=== PATIENT | male | born 1945 | race Caucasian/White ===

== ENCOUNTER → 2018-05-21 | Outpatient (CLI) | payer MEDICARE, OTHER | LOC: COL.RAD 08:17 | DX: N28.89 Other specified disorders of kidney and ureter (principal); N20.1 Calculus of ureter; N28.1 Cyst of kidney, acquired; K76.0 Fatty (change of) liver, not elsewhere classified; K57.30 Diverticulosis of large intestine without perforation or abscess without bleeding | CPT/HCPCS: Q9967 ==

== ENCOUNTER 2018-06-11 10:57 | Day surgery (SDC) | payer MEDICARE, OTHER ==
[2018-06-11] VITALS (9 sets, daily range): BP systolic 125–175; BP diastolic 78–101; PULSE 57–87; TEMP 97.5–97.9
[~2018-06-11] VITALS: Ht 170.2 cm; Wt 90.5 kg
[2018-06-11] MEDS ORDERED: LIPITOR 10MG10 MG PO (11:50)
[2018-06-11] MEDS ORDERED: METAMUCIL3.4 GM/DOS PO (11:50)
[2018-06-11] MEDS ORDERED: NEXIUM 20MG20 MG PO (11:51)
[2018-06-11] MEDS ORDERED: PROBIOTIC FORMU1 CAP PO (11:51)
[2018-06-11] MEDS ORDERED: ASPIRIN E.C. 8181 MG PO (11:51)
[2018-06-11] MEDS ORDERED: LISINOPRIL-HCTZ 20-1 PO (11:53)
[2018-06-11] MEDS ORDERED: VITAMIN FLUSH-F1 CAP PO (11:54)
[2018-06-11] MEDS ORDERED: NORCO 325 MG-51 TAB PO (16:05)
[2018-06-11] MEDS ORDERED: SENOKOT S 50 MG1 TAB PO (16:06)
[2018-06-11] MEDS ORDERED: PYRIDIUM 100MG100 MG PO (16:07)
== END 2018-06-11 19:35 | disposition home or self-care (01) ==
LOC: SDCO 10:57
DX: N20.1 Calculus of ureter (principal); I10 Essential (primary) hypertension; E78.5 Hyperlipidemia, unspecified; Z79.82 Long term (current) use of aspirin; F17.210 Nicotine dependence, cigarettes, uncomplicated; Z83.3 Family history of diabetes mellitus; Z80.0 Family history of malignant neoplasm of digestive organs; Z80.8 Family history of malignant neoplasm of other organs or systems; Z82.49 Family history of ischemic heart disease and other diseases of the circulatory system
CPT/HCPCS: C1769; C2617; J1100; J1885; J2270; J2405; J2704; J3010; J7120

== ENCOUNTER 2018-07-02 13:24 | Inpatient (IN) | payer MEDICARE, OTHER ==
[~2018-07-02] VITALS: Ht 170.2 cm; Wt 93.6 kg
[2018-09-21] VITALS (9 sets, daily range): BP systolic 114–146; BP diastolic 75–91; PULSE 83–98; TEMP 97.9
[2018-09-21] MEDS ORDERED: LISINOPRIL-HCTZ 20-1 PO (06:30)
[2018-09-21] MEDS ORDERED: PROTONIX 40MG T40 MG PO (06:33)
[2018-09-21 13:00] LABS: HEMATOCRIT 42.8 % (42.0-52.0); MEAN CELL VOLUME 94 fl (80.0-100.0); MEAN CORPUSCULAR HEMOGLOBIN 31 pg (27.0-31.0); MEAN CORPUSCULAR HGB CONC 33 g/dl (33.0-37.0); PLATELET COUNT 243 K/mm3 (130-400); RED BLOOD COUNT 4.55 M/mm3 (4.20-5.60); REDCELL DISTRIBUTION WIDTH-CV 13.3 % (11.5-14.5)
[2018-09-21 13:09] LABS: CALCIUM 8.4 mg/dL (8.4-10.2); CREATININE, serum 1.28 mg/dL (0.66-1.25); POTASSIUM 4.6 mmol/L (3.4-5.0)
[2018-09-21 13:52] LABS: BAND 7 % (0-10); LYMPHOCYTE 8 % (20.0-51.0); NEUTROPHILS 80 % (42.0-75.2); PLATELET ESTIMATE NORMAL (NORMAL)
[2018-09-22 01:00] VITALS: BP 126/72; PULSE 91; TEMP 97.4
[2018-09-22 04:22] VITALS: BP 135/76; PULSE 87; TEMP 97.1
[2018-09-22 06:34] LABS: BASO % 0.1 % (0.0-2.0); EOS % 0.1 % (0-4.0); GRAN # 11.7 (1.4-6.5); GRAN % 78.4 % (42.2-75.2); HEMATOCRIT 39.5 % (42.0-52.0); HEMOGLOBIN 12.9 g/dl (13.5-18.0); LYMPH # 1.7 (1.2-3.4); LYMPH % 11.2 % (20.0-51.0); MEAN CELL VOLUME 95 fl (80.0-100.0); MEAN CORPUSCULAR HEMOGLOBIN 31 pg (27.0-31.0); MEAN CORPUSCULAR HGB CONC 33 g/dl (33.0-37.0); MEAN PLATELET VOLUME 10.4 fl (7.4-10.4); MONO # 1.4 (0.1-0.6); MONO % 9.6 % (1.7-9.3); PLATELET COUNT 251 K/mm3 (130-400); RED BLOOD COUNT 4.18 M/mm3 (4.20-5.60); REDCELL DISTRIBUTION WIDTH-CV 13.3 % (11.5-14.5)
[2018-09-22 06:48] LABS: CALCIUM 8.3 mg/dL (8.4-10.2); CREATININE, serum 1.12 mg/dL (0.66-1.25); POTASSIUM 4.5 mmol/L (3.4-5.0)
[2018-09-22 07:10] VITALS: BP 132/81; PULSE 78; TEMP 97.7
[2018-09-22 11:05] VITALS: BP 127/74; PULSE 86; TEMP 97.9
[2018-09-22 15:58] VITALS: BP 123/67; PULSE 87; TEMP 97.6
[2018-09-22 21:02] VITALS: BP 114/45; PULSE 99; TEMP 98.3
[2018-09-23 03:34] VITALS: BP 122/82; PULSE 86; TEMP 98.1
[2018-09-23 08:00] VITALS: BP 112/69; PULSE 103; TEMP 98.3
== END 2018-09-23 10:55 | disposition home or self-care (01) | DRG 658 ==
LOC: INPTSU 09-21 05:21 → SURG 09-21 07:30
PROVIDERS: Urology
PROC: 8E0W4CZ Robotic Assisted Procedure of Trunk Region, Percutaneous Endoscopic Approach (ICD-10-PCS; 2018-09-21)
PROC: 0TB14ZZ Excision of Left Kidney, Percutaneous Endoscopic Approach (ICD-10-PCS; principal; 2018-09-21 07:30)
DX: C64.2 Malignant neoplasm of left kidney, except renal pelvis (principal); I10 Essential (primary) hypertension; E78.5 Hyperlipidemia, unspecified; F17.210 Nicotine dependence, cigarettes, uncomplicated
CPT/HCPCS: A4314; A4315; A9284; C1713; J0690; J1100; J1170; J2250; J2405; J2704; J2710; J3010; J7030; J7120

== ENCOUNTER → 2018-07-02 | Outpatient (CLI) | payer MEDICARE, OTHER ==
[~2018-07-02] MED LIST: ASPIRIN E.C. 8181 MG PO; LIPITOR 10MG10 MG PO; LISINOPRIL-HCTZ 20-1 PO; METAMUCIL3.4 GM/DOS PO; NEXIUM 20MG20 MG PO; NORCO 325 MG-51 TAB PO; PROBIOTIC FORMU1 CAP PO; PYRIDIUM 100MG100 MG PO; SENOKOT S 50 MG1 TAB PO; VITAMIN FLUSH-F1 CAP PO
== END ==
LOC: COL.RAD 10:28
DX: N28.1 Cyst of kidney, acquired (principal)

== ENCOUNTER → 2020-08-23 | Outpatient (CLI) | payer MEDICARE, OTHER ==
[~2020-08-23] MED LIST changes: +PROTONIX 40MG T40 MG PO
== END ==
LOC: COL.RAD 07:13
DX: Z85.528 Personal history of other malignant neoplasm of kidney (principal)

== ENCOUNTER → 2022-06-23 | Outpatient (CLI) | payer MEDICARE, OTHER | LOC: COL.RAD 07:20 | DX: Z12.2 Encounter for screening for malignant neoplasm of respiratory organs (principal); F17.210 Nicotine dependence, cigarettes, uncomplicated ==

== ENCOUNTER 2023-03-03 14:34 | Emergency (ER) | payer MEDICARE, OTHER ==
[~2023-03-03] VITALS: Ht 170.2 cm; Wt 84.1 kg
[2023-03-03 14:46] VITALS: TEMP 97.7
[2023-03-03 15:12] LABS: BASO % 0.2 % (0.0-2.0); EOS # 0.2 K/mm3 (0.0-0.7); EOS % 2.4 % (0.0-4.0); GRAN # 5.7 K/mm3 (1.4-6.5); GRAN % 65.7 % (42.2-75.2); HEMATOCRIT 46.4 % (42.0-52.0); HEMOGLOBIN 15.3 g/dl (13.5-18.0); LYMPH # 1.9 K/mm3 (1.2-3.4); LYMPH % 21.7 % (20.0-51.0); MEAN CELL VOLUME 91 fl (80.0-100.0); MEAN CORPUSCULAR HEMOGLOBIN 30 pg (27-31); MEAN CORPUSCULAR HGB CONC 33 g/dl (33.0-37.0); MEAN PLATELET VOLUME 9.8 fl (7.4-10.4); MONO # 0.9 K/mm3 (0.1-0.6); MONO % 9.7 % (1.7-9.3); PLATELET COUNT 291 K/mm3 (130-400); RED BLOOD COUNT 5.12 M/mm3 (4.20-5.60)
[2023-03-03 15:30] LABS: ALANINE AMINOTRANSFERASE 21 U/L (0-55); ALBUMIN 4.1 gm/dL (3.4-4.8); ALKALINE PHOSPHATASE 59 U/L (40-150); ANION GAP 11 mmol/L (7-16); AST,SGOT 14 U/L (5-34); BILIRUBIN,TOTAL 0.8 mg/dL (0.2-1.2); BLOOD UREA NITROGEN 20 mg/dL (8-26); CALCIUM 9.5 mg/dL (8.4-10.2); CARBON DIOXIDE 20 mmol/L (23-31); CHLORIDE 104 mmol/L (98-107); CREATININE, serum 1.27 mg/dL (0.72-1.25); GLUCOSE 95 mg/dL (70-99); POTASSIUM 4.2 mmol/L (3.5-4.5); SODIUM 135 mmol/L (136-145); TOTAL PROTEIN 7.9 gm/dL (6.2-8.1)
[2023-03-03 15:36] LABS: TROPONIN-I < 0.010 ng/mL (0.00-0.033)
[2023-03-03 16:25] LABS: INR 1.1 (0.8-3.0); PROTHROMBIN TIME 13.1 SECONDS (9.7-12.8)
[2023-03-03] MEDS ORDERED: NORCO 325 MG-51 TAB PO (17:42)
[2023-03-03 17:46] VITALS: BP 119/100; PULSE 79
== END 2023-03-03 18:01 | disposition home or self-care (01) ==
LOC: COL.ER 14:34
PROVIDERS: Family Medicine; Physician Assistant
DX: K55.069 Acute infarction of intestine, part and extent unspecified (principal); R07.81 Pleurodynia; R79.1 Abnormal coagulation profile; Z87.891 Personal history of nicotine dependence; Z20.822 Contact with and (suspected) exposure to COVID-19; Z28.310 Unvaccinated for COVID-19
CPT/HCPCS: J2270; Q9967